=== PATIENT | female | born 1955 | race Caucasian/White ===

== ENCOUNTER → 2017-04-12 | Outpatient (CLI) | payer BC ==
--- NOTE | 2017-04-13 06:59 | MM ---
Reason for exam: screening (asymptomatic). Last mammogram was performed 1 year ago. History: Patient is postmenopausal. Benign stereotactic core biopsy of the left breast, July 30, 2003. Physical Findings: A clinical breast exam by your physician is recommended on an annual basis and results should be correlated with mammographic findings. MG Screening Mammo w CAD Bilateral CC and MLO view(s) were taken. Prior study comparison: April 11, 2016, bilateral MG screening mammo w CAD. April 06, 2015, bilateral MG diagnostic mammo w CAD MARIO. The breast tissue is heterogeneously dense. This may lower the sensitivity of mammography. There is no discrete abnormality. No significant changes when compared with prior studies. ASSESSMENT: Negative, BI-RAD 1 RECOMMENDATION: Routine screening mammogram of both breasts in 1 year.
== END | disposition home or self-care (01) ==
LOC: RADMAMWWP 09:54
PROVIDERS: ATTEND Family Medicine
DX: Z12.31 Encounter for screening mammogram for malignant neoplasm of breast (principal)

== ENCOUNTER → 2017-06-01 | Outpatient (CLI) | payer BC ==
--- NOTE | 2017-06-01 10:31 | US ---
EXAMINATION TYPE: US transvaginal DATE OF EXAM: 06/01/2017 COMPARISON: 09/03/2015 CLINICAL HISTORY: N93.8 Dysfunctional uterine bleeding. Yellow discharge x 2 weeks, vaginal bleeding during intercourse TECHNIQUE: Transvaginal (TV) Date of LMP: unknown EXAM MEASUREMENTS: Uterus: 6.1 x 2.7 x 3.5 cm Endometrial Stripe: 0.4 cm Right Ovary: 3.2 x 2.3 x 2.2 cm Left Ovary: unable to visualize 1. Uterus: Anteverted heterogeneous in appearance. Hypoechoic area within cervix = 0.9 x 0.6 x 1.2 cm as noted on prior . This finding is avascular, however there is no distinct increased through vargas smission present. 2. Endometrium: appears wnl 3. Right Ovary: Follicle = 1.4 x 1.8 x 1.4cm 4. Left Ovary: unable to visualize 5. Bilateral Adnexa: appears wnl 6. Posterior cul-de-sac: appears wnl IMPRESSION: 1. Irregular hypoechoic area within the cervix has enlarged now measuring 1.4 x 1.8 x 1.4 cm. Direct visualization is recommended to ensure this does not represent cervical neoplasm although this could represent a complex nabothian cyst. 2. Endometrial thickness is within normal limits, however direct visualization with endometrial sampl ing is recommended in a patient with postmenopausal bleeding as there is no significant endometrial a trophy to account for the vaginal bleeding.
== END | disposition home or self-care (01) ==
LOC: RADUSWWP 08:57
PROVIDERS: ATTEND Family Medicine
DX: N93.8 Other specified abnormal uterine and vaginal bleeding (principal)
CPT/HCPCS: 76830

== ENCOUNTER 2018-02-05 14:55 | Emergency (ER) | payer BC ==
[2018-02-05 14:59] VITALS: RESP 18
[2018-02-05] MEDS ORDERED: diphenhydrAMINE 50 MG/ML 1 ML VIAL IVP STA (15:05)
[2018-02-05] MEDS ORDERED: methylPREDNISolone SOD SUCCI 125 MG/2 ML VIAL IV STA (15:06)
[2018-02-05] MEDS ORDERED: FAMOTIDINE 20 MG/2 ML VIAL IV STA (15:07)
--- NOTE | 2018-02-05 15:16 | ED ---
General Adult HPI - General Chief complaint: Allergic Reaction Stated complaint: Bee Sting Time Seen by Provider: 02/05/18 15:00 Source: patient, RN notes reviewed Mode of arrival: ambulatory Limitations: no limitations - History of Present Illness Initial comments: 62-year-old female presents to the emergency department for a chief complaint of ALLERGIC reaction 4 hours. Patient was stung by a bee in the left foot. Patient has had ALLERGIC reactions to bees in the past. Patient has an EpiPen but has never had to use it before. Patient denies swelling of the lips tongue or throat. Patient states her ear is feeling tear popping. Patient denies any difficulty breathing or shortness of breath at this time. Patient states she did not want to come by her that she should. Patient has no other complaints at this time including shortness of breath, chest pain, abdominal pain, nausea or vomiting, headache, or visual changes. - Related Data Home Medications Medication Instructions Recorded Confirmed Atorvastatin [Lipitor] 20 mg PO HS 02/05/18 02/05/18 Biotin 5 mg PO HS 02/05/18 02/05/18 Cetirizine HCl [Zyrtec] 10 mg PO DAILY 02/05/18 02/05/18 Cholecalciferol [Vitamin D3] 1,000 unit PO HS 02/05/18 02/05/18 Cranberry Fruit Extract [Cranberry] 200 mg PO DAILY 02/05/18 02/05/18 Levothyroxine Sodium [Synthroid] 50 mcg PO DAILY 02/05/18 02/05/18 Montelukast [Singulair] 10 mg PO DAILY 02/05/18 02/05/18 Multivitamins, Thera [Multivitamin 1 tab PO HS 02/05/18 02/05/18 (formulary)] Previous Rx's Medication Instructions Recorded Famotidine [Pepcid] 10 mg PO BID #10 tablet 02/05/18 diphenhydrAMINE [Benadryl] 50 mg PO QID PRN #20 capsule 02/05/18 predniSONE 50 mg PO DAILY #5 tablet 02/05/18 Allergies Allergy/AdvReac Type Severity Reaction Status Date / Time tree nut [Nut] AdvReac Rash/Hives Verified 02/05/18 15:13 Review of Systems ROS Statement: Those systems with pertinent positive or pertinent negative responses have been documented in the HPI. ROS Other: All systems not noted in ROS Statement are negative. Past Medical History Past Medical History: Hyperlipidemia, Thyroid Disorder Additional Past Medical History / Comment(s): seasonal allergy, History of Any Multi-Drug Resistant Organisms: None Reported Past Surgical History: Adenoidectomy, Tonsillectomy Additional Past Surgical History / Comment(s): eye sx Past Psychological History: No Psychological Hx Reported Smoking Status: Never smoker Past Alcohol Use History: Rare Past Drug Use History: None Reported General Exam Limitations: no limitations General appearance: alert, in no apparent distress Head exam: Present: atraumatic, normocephalic, normal inspection Eye exam: Present: normal appearance, PERRL, EOMI. Absent: scleral icterus, conjunctival injection, periorbital swelling ENT exam: Present: normal exam, normal oropharynx (oropharynx patent. no visible swelling in the throat or tongue), mucous membranes moist, TM's normal bilaterally, normal external ear exam Neck exam: Present: normal inspection, full ROM. Absent: tenderness, meningismus, lymphadenopathy Respiratory exam: Present: normal lung sounds bilaterally. Absent: respiratory distress, wheezes, rales, rhonchi, stridor Cardiovascular Exam: Present: regular rate, normal rhythm, normal heart sounds. Absent: systolic murmur, diastolic murmur, rubs, gallop, clicks Skin exam: Present: rash (Patient does have plaque like erythematous pruritic hives on the legs, arms, abdomen, and back. Coalescing hives on left lower leg near sting.) Course Vital Signs 02/05/18 14:56 Temperature 97.6 F Pulse Rate 84 Respiratory 18 Rate Blood Pressure 143/88 O2 Sat by Pulse 100 Oximetry Medical Decision Making - Medical Decision Making 62-year-old female presents to the emergency department for chief complaint of ALLERGIC reaction 4 hours. Patient was stung by bee on the left foot about 4 hours ago. Patient states she started to develop hives. Patient denies any swelling in the lips tongue or throat. No difficulty breathing or shortness of breath. Patient took Benadryl about 4 hours ago. On exam patient does not seem in distress. Oropharynx painted. No swelling of the lips tongue or throat. Patient was given IV Solu-Medrol, Benadryl, and Pepcid. About an hour after this was given on reevaluation patient is feeling much better. Patient is ready to go home. On reevaluation patient still denies any swelling of the lips tongue or throat. Hives have started to improve. Patient will be discharged home with prednisone and Pepcid. She has Benadryl at home. She will follow up with primary care in 1-2 days. She will return to the emergency Department if she has any worsening symptoms. Disposition Clinical Impression: Allergic reaction Disposition: HOME SELF-CARE Condition: Good Instructions: General Allergic Reaction (ED), Anaphylaxis (ED) Prescriptions: diphenhydrAMINE [Benadryl] 50 mg PO QID PRN #20 capsule PRN Reason: Allergic Reaction Famotidine [Pepcid] 10 mg PO BID #10 tablet predniSONE 50 mg PO DAILY #5 tablet Is patient prescribed a controlled substance at d/c from ED?: No Referrals: Mehran Alexandra MD [Primary Care Provider] - 1-2 days Time of Disposition: 16:24
[2018-02-05 16:39] VITALS: BP 118/63; PULSE 81; TEMP 97.5
== END 2018-02-05 16:39 | disposition home or self-care (01) ==
LOC: EC 14:55
DX: T63.441A Toxic effect of venom of bees, accidental (unintentional), initial encounter (principal); L50.0 Allergic urticaria; E78.5 Hyperlipidemia, unspecified; E07.9 Disorder of thyroid, unspecified; Z79.899 Other long term (current) drug therapy; Z91.018 Allergy to other foods
CPT/HCPCS: 99283; 96374; 96375 ×2; J1200; J2930

== ENCOUNTER → 2018-04-23 | Outpatient (CLI) | payer BC ==
--- NOTE | 2018-04-25 14:23 | MM ---
Reason for exam: screening (asymptomatic). Last mammogram was performed 1 year ago. History: Patient is postmenopausal. Benign stereotactic core biopsy of the left breast, July 30, 2003. Physical Findings: A clinical breast exam by your physician is recommended on an annual basis and results should be correlated with mammographic findings. MG 3D Screening Mammo W/Cad Bilateral CC and MLO view(s) were taken. Prior study comparison: April 12, 2017, bilateral MG screening mammo w CAD. April 11, 2016, bilateral MG screening mammo w CAD. Previous mammotome biopsy in the left breast. There is chronic nodularity in the right breast. No significant changes when compared with prior studies. ASSESSMENT: Benign, BI-RAD 2 RECOMMENDATION: Routine screening mammogram of both breasts in 1 year.
== END | disposition home or self-care (01) ==
LOC: RADMAMWWP 08:33
PROVIDERS: ATTEND Family Medicine
DX: Z12.31 Encounter for screening mammogram for malignant neoplasm of breast (principal)
CPT/HCPCS: 77063; 77067

== ENCOUNTER → 2019-04-24 | Outpatient (CLI) | payer MEDICARE ==
--- NOTE | 2019-04-28 08:10 | MM ---
Reason for exam: screening (asymptomatic). Last mammogram was performed 1 year ago. History: Patient is postmenopausal. Benign stereotactic core biopsy of the left breast, July 30, 2003. Physical Findings: A clinical breast exam by your physician is recommended on an annual basis and results should be correlated with mammographic findings. MG 3D Screening Mammo W/Cad Bilateral CC and MLO view(s) were taken. Prior study comparison: April 23, 2018, bilateral MG 3d screening mammo w/cad. April 12, 2017, bilateral MG screening mammo w CAD. The breast tissue is heterogeneously dense. This may lower the sensitivity of mammography. Previous mammotome biopsy in the left breast. Nodular asymmetry subareolar anterior right CC view is more defined. ASSESSMENT: Incomplete: need additional imaging evaluation, BI-RAD 0 RECOMMENDATION: Special view mammogram of the right breast. (3D) If lesion persists on supplemental views, image directed ultrasound is recommended. [facility] will attempt to contact patient to return for supplemental views and ultrasound if indicated.
== END | disposition home or self-care (01) ==
LOC: RADMAMWWP 13:51
PROVIDERS: ATTEND Family Medicine
DX: Z12.31 Encounter for screening mammogram for malignant neoplasm of breast (principal)
CPT/HCPCS: 77063; 77067

== ENCOUNTER → 2019-04-29 | Outpatient (CLI) | payer MEDICARE ==
--- NOTE | 2019-04-29 11:51 | MM ---
Reason for exam: additional evaluation requested from abnormal screening. Last mammogram was performed less than 1 month ago. History: Patient is postmenopausal. Benign stereotactic core biopsy of the left breast, July 30, 2003. Took hormonal contraceptives for 20 years beginning at age 19. Physical Findings: Nurse did not find any significant physical abnormalities on exam. MG 3D Work Up W/Cad RT Spot compression CC, spot compression MLO, and ML view(s) were taken of the right breast. Prior study comparison: April 24, 2019, bilateral MG 3d screening mammo w/cad. April 23, 2018, bilateral MG 3d screening mammo w/cad. The breast tissue is heterogeneously dense. This may lower the sensitivity of mammography. The previously seen abnormality resolves on additional views and appears as fibroglandular tissue compatible with summation on the right breast. These results were verbally communicated with the patient and result sheet given to the patient on 04/29/19. ASSESSMENT: Negative, BI-RAD 1 RECOMMENDATION: Return to routine screening mammogram schedule for both breasts.
== END | disposition home or self-care (01) ==
LOC: RADMAMWWP 10:45
PROVIDERS: ATTEND Family Medicine
DX: R92.8 Other abnormal and inconclusive findings on diagnostic imaging of breast (principal)
CPT/HCPCS: 77065; G0279; 77061

== ENCOUNTER → 2020-06-15 | Outpatient (CLI) | payer MEDICARE ==
--- NOTE | 2020-06-16 11:48 | MM ---
Reason for exam: screening (asymptomatic). Last mammogram was performed 1 year and 2 months ago. History: Patient is postmenopausal. Benign stereotactic core biopsy of the left breast, July 30, 2003. Took hormonal contraceptives for 20 years beginning at age 19. Physical Findings: A clinical breast exam by your physician is recommended on an annual basis and results should be correlated with mammographic findings. MG 3D Screening Mammo W/Cad Bilateral CC and MLO view(s) were taken. Prior study comparison: April 29, 2019, right breast MG 3d work up w/cad RT. April 24, 2019, bilateral MG 3d screening mammo w/cad. The breast tissue is heterogeneously dense. This may lower the sensitivity of mammography. There are benign appearing round calcifications bilaterally. Previous mammotome biopsy in the left breast. There is chronic nodularity in the right axilla. There is no discrete abnormality. ASSESSMENT: Benign, BI-RAD 2 RECOMMENDATION: Routine screening mammogram of both breasts in 1 year.
== END | disposition home or self-care (01) ==
LOC: RADMAMWWP 09:34
PROVIDERS: ATTEND Family Medicine
DX: Z12.31 Encounter for screening mammogram for malignant neoplasm of breast (principal)
CPT/HCPCS: 77063; 77067

== ENCOUNTER → 2021-06-17 | Outpatient (CLI) | payer MEDICARE ==
--- NOTE | 2021-06-21 08:05 | MM ---
Reason for exam: screening (asymptomatic). Last mammogram was performed 1 year ago. History: Patient is postmenopausal. Benign stereotactic core biopsy of the left breast, July 30, 2003. Took hormonal contraceptives for 20 years beginning at age 19. Physical Findings: A clinical breast exam by your physician is recommended on an annual basis and results should be correlated with mammographic findings. MG 3D Screening Mammo W/Cad Bilateral CC and MLO view(s) were taken. Prior study comparison: June 15, 2020, bilateral MG 3d screening mammo w/cad. April 29, 2019, right breast MG 3d work up w/cad RT. The breast tissue is heterogeneously dense. This may lower the sensitivity of mammography. Previous mammotome biopsy in the left breast. There is chronic nodularity in the right breast. No significant changes when compared with prior studies. ASSESSMENT: Negative, BI-RAD 1 RECOMMENDATION: Routine screening mammogram of both breasts in 1 year.
== END | disposition home or self-care (01) ==
LOC: RADMAMWWP 15:47
PROVIDERS: ATTEND Family Medicine
DX: Z12.31 Encounter for screening mammogram for malignant neoplasm of breast (principal)
CPT/HCPCS: 77063; 77067

== ENCOUNTER → 2022-06-20 | Outpatient (CLI) | payer MEDICARE ==
--- NOTE | 2022-06-20 12:05 | MM ---
Reason for Exam: Screening (asymptomatic). Last mammogram was performed 1 year(s) and 1 month(s) ago. Patient History: Menarche at age 15. First Full-Term at age 20. Postmenopausal. Hormonal Contraceptives for 20 years from age 19 until age 39. 07/30/2003, Benign Stereotactic Core Biopsy on the left side. Risk Values: Tonia 5 year model risk: 1.6%. NCI Lifetime model risk: 5.4%. Prior Study Comparison: 04/29/2019 Right Diagnostic Mammogram, [facility]. 06/15/2020 Bilateral Screening Mammogram, [facility]. 06/17/2021 Bilateral Screening Mammogram, [facility]. Tissue Density: The breast tissue is heterogeneously dense. This may lower the sensitivity of mammography. Findings: Analyzed By CAD. Mammotome biopsy clip left breast redemonstrated. A few scattered tiny benign-appearing round calcifications throughout the right breast are again seen. Stable well-defined 4 mm round lesion towards the right axilla. There is no suspicious new group of microcalcifications or new suspicious mass in either breast. Overall Assessment: Benign, BI-RAD 2 Management: Screening Mammogram of both breasts in 1 year. A clinical breast exam by your physician is recommended on an annual basis and results should be correlated with mammographic findings. Electronically signed and approved by: Satish Willis M.D.
== END | disposition home or self-care (01) ==
LOC: RADMAMWWP 09:48
PROVIDERS: ATTEND Family Medicine
DX: Z12.31 Encounter for screening mammogram for malignant neoplasm of breast (principal); Z78.0 Asymptomatic menopausal state; Z98.890 Other specified postprocedural states
CPT/HCPCS: 77063; 77067

== ENCOUNTER → 2022-12-14 | Outpatient (CLI) | payer MEDICARE ==
--- NOTE | 2022-12-15 06:28 | US ---
EXAMINATION TYPE: US transvaginal DATE OF EXAM: 12/14/2022 COMPARISON: Prior ultrasound 2017 CLINICAL INDICATION: Female, 67 years old with history of N95.0 POSTMENOPAUSAL BLEEDING;Postmenopausa l bleeding x 2 months ago. TECHNIQUE: Transvaginal (TV EXAM MEASUREMENTS: Uterus: 6.4 x 2.4 x 3.7 cm Endometrial Stripe: .3cm Right Ovary: 2.4 x 1.6 x 2.3 cm 1. Uterus: Anteverted wnl 2. Endometrium: wnl 3. Right Ovary: Anechoic area 1.3 x 1.2 x 1.3 cm. 4. Left Ovary: Obscured by overlying bowel gas 5. Bilateral Adnexa: wnl 6. Posterior cul-de-sac: wnl Heterogeneous uterus. Endometrial stripe measures 3 mm images within normal limits for postmenopausal female. No free fluid in pelvic cul-de-sac. Left ovary not seen. Right ovary identified with 1.3 cm simple appearing thin-walled cyst. IMPRESSION: No abnormal endometrial thickening.
== END | disposition home or self-care (01) ==
LOC: RADUSWWP 15:30
PROVIDERS: ATTEND Family Medicine
DX: N95.0 Postmenopausal bleeding (principal)
CPT/HCPCS: 76830

== ENCOUNTER → 2023-06-21 | Outpatient (CLI) | payer MEDICARE ==
--- NOTE | 2023-06-22 08:31 | MM ---
Reason for Exam: Screening (asymptomatic). Last screening mammogram was performed 12 month(s) ago. Patient History: Menarche at age 15. First Full-Term at age 20. Postmenopausal. Hormonal Contraceptives for 20 years from age 19 until age 39. 07/30/2003, Benign Stereotactic Core Biopsy on the left side. Risk Values: Tonia 5 year model risk: 1.7%. NCI Lifetime model risk: 5.1%. Prior Study Comparison: 06/15/2020 Bilateral Screening Mammogram, [facility]. 06/17/2021 Bilateral Screening Mammogram, [facility]. 06/20/2022 Bilateral MG 3D screening mammo w/cad, [facility]. Tissue Density: The breast tissue is heterogeneously dense. This may lower the sensitivity of mammography. Findings: Analyzed By CAD. Pattern appears symmetrical and stable. Benign calcifications within the right breast. The core marker is within the left breast. No suspicious groups of microcalcifications, spiculated or lobular masses, architectural distortion or other secondary signs of malignancy are mammographically apparent. Overall Assessment: Benign, BI-RAD 2 Management: Screening Mammogram of both breasts in 1 year. A negative mammogram report should not preclude additional follow up of suspicious palpable abnormalities. Patient should continue monthly self breast exam. A clinical breast exam by your physician is recommended on an annual basis and results should be correlated with mammographic findings. Electronically signed and approved by: Reed Cabrera D.O. Radiologis
== END | disposition home or self-care (01) ==
LOC: RADMAMWWP 08:56
PROVIDERS: ATTEND Family Medicine
DX: Z12.31 Encounter for screening mammogram for malignant neoplasm of breast (principal); Z78.0 Asymptomatic menopausal state
CPT/HCPCS: 77063; 77067

== ENCOUNTER → 2024-06-23 | Outpatient (CLI) | payer MEDICARE ==
--- NOTE | 2024-06-23 13:39 | MM ---
Reason for Exam: Screening (asymptomatic). Last screening mammogram was performed 12 month(s) ago. Patient History: Menarche at age 15. First Full-Term at age 20. Postmenopausal. Hormonal Contraceptives for 20 years from age 19 until age 39. 07/30/2003, Benign Stereotactic Core Biopsy on the left side. Risk Values: Tonia 5 year model risk: 1.7%. NCI Lifetime model risk: 4.9%. Prior Study Comparison: 06/17/2021 Bilateral Screening Mammogram, [facility]. 06/20/2022 Bilateral MG 3D screening mammo w/cad, [facility]. 06/21/2023 Bilateral MG 3D screening mammo w/cad, [facility]. Tissue Density: The breasts are heterogeneously dense, which may obscure small masses. Findings: Analyzed By CAD. There is no suspicious group of microcalcifications or new suspicious mass in either breast. Chronic nodularity or lymph node in the outer upper margin right breast. Stable from multiple prior exams. Surgical clip in the left breast is stable. Benign calcifications. Overall Assessment: Benign, BI-RAD 2 Management: Screening Mammogram of both breasts in 1 year. . Patient should continue monthly self-breast exams. A clinical breast exam by your physician is recommended on an annual basis. This exam should not preclude additional follow-up of suspicious palpable abnormalities. Note on Tonia scores and lifetime risk: 1. A Tonia score greater than 3% is considered moderate risk. If this is the case, consider specialist referral to assess eligibility for a risk reducing agent. 2. If overall lifetime risk for the development of breast cancer is 20% or higher, the patient may qualify for future screening with alternating mammogram and breast MRI. [facility], , 06/23/2024 1:36 PM. Electronically signed and approved by: Mehran Bundy M.D. Radiologis
== END | disposition home or self-care (01) ==
LOC: RADMAMWWP 08:41
PROVIDERS: ATTEND Family Medicine
DX: Z12.31 Encounter for screening mammogram for malignant neoplasm of breast (principal); R92.333 Mammographic heterogeneous density, bilateral breasts; Z78.0 Asymptomatic menopausal state
CPT/HCPCS: 77063; 77067